=== PATIENT | male | born 1980 | race Caucasian/White ===

== ENCOUNTER 2022-03-21 14:20 | Emergency (ER) | payer OTHER ==
[~2022-03-21] VITALS: Ht 184 cm; Wt 91.0 kg
[2022-03-21] MEDS ORDERED: NF-CIPDEC OT (14:49)
--- NOTE | 2022-03-21 14:49 | ED EENT ---
History of Present Illness General Chief Complaint: Ear Problems Stated Complaint: EAR ACHE AND PRESSURE ON LEFT SIDE Nursing Triage Note: PT STATES LT EAR ACHE, HX OF THIS, HAPPENS ABOUT 1-2 TIMES A YEAR, DID HAVE A TUBE IN IT PLACED WHEN HE WAS 12 Source: patient Exam Limitations: no limitations History of Present Illness Date Seen by Provider: Mar 21, 2022 Time Seen by Provider: 14:45 Allergies and Home Medications Allergies Coded Allergies: No Known Drug Allergies (Unverified , 03/21/22) Past Wtuysok-Payigd-Brolgt Hx Patient Social History Tobacco Use?: Yes Smoking Status: Former Smoker Substance use?: Yes Substance type: Marijuana Alcohol Use?: Yes Alcohol type: Beer Alcohol Frequency: Rarely Past Medical History Surgery/Hospitalization HX: CHRONIC LT EAR ACHES, IBS Physical Exam Vital Signs Vital Signs - First Documented 03/21/22 14:30 Temp 37.0 Pulse 78 Resp 18 B/P (MAP) 118/79 (92) Pulse Ox 99 O2 Delivery Room Air Height, Weight, BMI Height: '" Weight: lbs. oz. kg; 26.00 BMI Method: Progress/Results/Core Measures Results/Orders Vital Signs/I&O 03/21/22 14:30 Temp 37.0 Pulse 78 Resp 18 B/P (MAP) 118/79 (92) Pulse Ox 99 O2 Delivery Room Air Blood Pressure Mean: 92 Departure Impression Primary Impression: Otitis media Disposition: 01 HOME, SELF-CARE Condition: Stable Departure-Patient Inst. Decision time for Depature: 14:46 Referrals: NO,LOCAL PHYSICIAN (PCP) Primary Care Physician Patient Instructions: Ear Infections (Otitis Media) in Adults (DC) Add. Discharge Instructions: Plan: 1. You can pick her Ciprodex at [facility] pharmacy, take as directed. 2. He can take Tylenol ibuprofen as needed for pain per package. 3. You can return to any local ER if you have any new, concerning, worsening symptoms. All discharge instructions reviewed with patient and/or family. Voiced understanding. Scripts Ciprofloxacin HCl/Dexameth (Ciprodex Otic Suspension) 0.3 %-0.1 % Soln 4 DROPS OT Q12H for 7 Days, #7.5 ML 0 Refills Left ear Prov: TIM [employer] 03/21/22 TIM [employer] Mar 21, 2022 14:49
[2022-03-21 14:52] VITALS: BP 118/79
== END 2022-03-21 14:52 | disposition home or self-care (01) ==
LOC: ER 14:26
DX: H66.92 Otitis media, unspecified, left ear (principal); Z96.22 Myringotomy tube(s) status; Z87.891 Personal history of nicotine dependence; Z28.311 Partially vaccinated for COVID-19
CPT/HCPCS: 99282